=== PATIENT | male | born 1985 | race American Indian/Alaskan Native ===

== ENCOUNTER 2018-08-25 23:24 | Emergency (ER) | payer OTHER, MEDICAID ==
[2018-08-25] MEDS ORDERED: Lidocaine Hydrochloride 5 ML INJ ONE (23:40)
[2018-08-25] MEDS ORDERED: Bacitracin 500 Units/gm Oint Foilpak UD ONE (23:40)
[2018-08-25] MEDS ORDERED: Bacitracin 500 Units/gm Oint Foilpak UD TOP ONE (23:50)
[2018-08-25] MEDS ORDERED: Tdap Vaccine 0.5 ml Vial (10-64 yrs) IM ONE ×2 (23:50→23:56)
[2018-08-25] MEDS ORDERED: Lidocaine 1% Inj (20ml) INFIL ONE (23:51)
[2018-08-25 23:54] VITALS: BP 147/85; PULSE 81; TEMP 99; O2SAT 97
--- NOTE | 2018-08-25 23:54 | C.PDOC ---
History Of Present Illness 32 year old male presents to the ED c/o left middle finger pain s/p laceration. 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 He believes he was cut by broken glass. Patient denies numbness, weakness, tingling, rash, fever, or up to date tetanus vaccine. Time Seen by Provider: 08/25/18 23:30 History Per: Patient History/Exam Limitations: no limitations Onset/Duration Of Symptoms: Hrs Current Symptoms Are (Timing): Still Present Location Of Injury: Left: Hand Quality Of Symptoms: Painful Recent travel outside of the [place]: No Additional History Per: Patient Past Medical History Reviewed: Historical Data, Nursing Documentation, Vital Signs Vital Signs: Last Vital Signs Temp 99 F 08/25/18 23:36 Pulse 81 08/25/18 23:36 Resp 22 08/25/18 23:36 BP 147/85 08/25/18 23:36 Pulse Ox 97 08/25/18 23:36 Primary Care Provider: Non [facility] Provider, - Medical History PMH: No Chronic Diseases Surgical History: No Surg Hx Family History: States: Unknown Family Hx - Social History Hx Alcohol Use: No Hx Substance Use: No - Immunization History Hx Tetanus Toxoid Vaccination: No Hx Influenza Vaccination: No Hx Pneumococcal Vaccination: No Review Of Systems Constitutional: Negative for: Fever, Chills Musculoskeletal: Positive for: Hand Pain. Negative for: Arm Pain Skin: Positive for: Other (laceration). Negative for: Rash Neurological: Negative for: Weakness, Numbness, Headache, Dizziness Physical Exam - Physical Exam Appears: Non-toxic, No Acute Distress Skin: Normal Color, Warm, Dry Head: Atraumatic, Normacephalic Eye(s): bilateral: Normal Inspection Neck: Normal ROM, Supple Cardiovascular: Rhythm Regular Respiratory: Normal Breath Sounds, No Wheezing Extremity: Normal ROM, Tenderness (left middle finger), Capillary Refill <2 Sec (< 2 seconds), No Swelling, Other (1.5 cm laceration to left 3rd finger pad diagonal.) Pulses: Left Radial: Normal, Right Radial: Normal Neurological/Psych: Oriented x3, Normal Speech, Normal Cognition, Normal Motor, Normal Sensation Gait: Steady ED Course And Treatment O2 Sat by Pulse Oximetry: 97 (ON RA) Pulse Ox Interpretation: Normal Laceration - Laceration Repair left middle finger Wound Length (In cm): 1.5 Description Of Wound: Linear Wound Cleansed With: Betadine, Sterile Saline Anesthesia: Lidocaine 1% Wound Examination: Irrigated With Saline, No FB With Wound Exploration, No Tendo n Injury With Wound Exploration Wound Closure: Suture (x2 ) Suture Technique And Material Used: Nylon (4-o) Wound Complexity: Simple Medical Decision Making Medical Decision Making: Plan: Laceration repair * Bacitracin to wound * Clindamycin 300 mg PO prophylaxis Patient advised to keep wound clean and dry Follow up in 7 days for removal of suture Continue antibiotics for 3 days Apply Bacitracin daily Patient is stable for discharge Disposition Counseled Patient/Family Regarding: Diagnosis, Need For Followup, Rx Given - Disposition Referrals: [facility] [Outside] Disposition: HOME/ ROUTINE Disposition Time: 23:51 Condition: IMPROVED Additional Instructions: Keep wound clean and dry Follow up in 7 days for removal of suture Continue antibiotics for 3 days Apply Bacitracin daily Prescriptions: Bacitracin OINT 1 applic TP DAILY 7 Days #1 tube Clindamycin [Cleocin] 300 mg PO TID #8 cap Instructions: Wound Care (DC), Laceration Repair With Stitches (DC) Forms: Work Excuse - Clinical Impression Clinical Impression: Pain of left middle finger, Laceration - PA / 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 - Scribe Statement The provider has reviewed the documentation as recorded by the Scribe Darrell Mata All medical record entries made by the Scribe were at my direction and personally dictated by me. I have reviewed the chart and agree that the record accurately reflects my personal performance of the history, physical exam, medical decision making, and the department course for this patient. I have also personally directed, reviewed, and agree with the discharge instructions and disposition.
[2018-08-26 00:12] VITALS: RESP 20
== END 2018-08-26 00:12 | disposition home or self-care (01) ==
LOC: C.ER 23:24
DX: S61.213A Laceration without foreign body of left middle finger without damage to nail, initial encounter (principal); W25.XXXA Contact with sharp glass, initial encounter; Z23 Encounter for immunization